=== PATIENT | female | born 1985 | race African-American/Black ===

== ENCOUNTER 2020-02-13 18:02 | Emergency (ER) | payer OTHER, SELFPAY ==
--- NOTE | 2020-02-13 18:08 | ED.ALLEREA ---
HPI - Allergic Reaction General Chief complaint: Allergic Reaction Stated complaint: Allergic Reaction Time Seen by Provider: 02/13/20 18:08 Source: patient and RN notes reviewed History of Present Illness HPI narrative: Patient is a 34-year-old female who presents the urgent care with complaints of a possible allergic reaction. Patient states that she woke up at 4 PM to get ready for work this evening and noticed hives to the bilateral breast, back, and panty line. Patient denies of any new lotions, detergents, creams. Denies of any known contact with pets. States that she has been a little stressed out but has never had hives from stress. Patient has not taken anything [id number] for her symptoms. Denies of any new foods. Denies of shortness of breath, wheezing or throat swelling. No other acute complaints. No acute distress noted. Patient aware of the plan of care. Some parts of this dictation were generated by voice recognition software and may contain typographical and/or grammatical inaccuracies. Related Data Allergies Allergy/AdvReac Type Severity Reaction Status Date / Time [place] Allergy Unknown Rash Uncoded 02/13/20 18:18 Review of Systems Review of Systems: Narrative: CONSTITUTIONAL: Denies fever, chills, or sweats. EYES: Denies visual changes, redness, or discharge. ENT: Denies rhinorrhea, congestion, sore throat, or otalgia. CARDIOVASCULAR: Denies chest pain, palpitations, or edema. RESPIRATORY: Denies cough or dyspnea. GASTROINTESTINAL: Denies abdominal pain, nausea, vomiting, or diarrhea. GENITOURINARY: Denies dysuria or hematuria. SKIN: Reports of hives to the left panty line and left breast MUSCULOSKELETAL: Denies back pain, joint pain, or myalgia. NEUROLOGIC: Denies headache, numbness, or weakness. All other systems reviewed are negative, except as documented in HPI. PMFSH Comments At the time of my signature, I reviewed and agree with the nursing past medical, surgical, social, and family history. There is no relevant family history pertinent to the patient complaint. Exam Narrative: Exam Narrative: GENERAL: This is a well-nourished, well-developed patient, in no apparent distress. HEAD: normocephalic, atraumatic. EYES: PERRL. Sclera clear/white. Vision is grossly intact. EARS: External ears normal NOSE: External nose normal with no obvious nasal discharge, nares without redness, no rhinorrhea. THROAT: Mucous membranes moist NECK: Neck supple SKIN: Raised urticaria with mild erythema to the bilateral breast, back, and panty line, nonpruritic NEURO: awake, alert, and oriented to person, place and time. There were no obvious focal neurologic abnormalities. EXTREMITIES: No clubbing, cyanosis, or edema. Course Vital Signs Vital signs: Vital Signs Temperature 98.7 F 02/13/20 18:14 Pulse Rate 90 02/13/20 18:14 Respiratory Rate 18 02/13/20 18:14 Blood Pressure 146/97 H 02/13/20 18:14 Pulse Oximetry 100 02/13/20 18:14 Temperature 98.7 F 02/13/20 18:14 Pulse Rate 90 02/13/20 18:14 Respiratory Rate 18 02/13/20 18:14 Blood Pressure 146/97 H 02/13/20 18:14 Pulse Oximetry 100 02/13/20 18:14 Reviewed-patient is informed that they may have pre-hypertension or hypertension based on a blood pressure reading in the department. I recommend the patient call the primary care provider listed on their discharge instructions or a physician of their choice this week to arrange follow-up for further evaluation of possible pre-hypertension or hypertension. MDM - Allergic Reaction MDM Narrative Medical decision making narrative: Advised the patient to use prescription cream to the affected areas. If you notice any increase in swelling or spread of the hives, start steroid and finish it as prescribed. Hives typically resolve on their own and can be stress-induced. If you notice full body hives?go to the emergency room. Follow-up with your PCP within 2 to 5 days or for worsening symptoms
[2020-02-13 18:14] VITALS: BP 146/97; PULSE 90; RESP 18; TEMP 37.1; O2SAT 100
== END 2020-02-13 18:25 | disposition home or self-care (01) ==
PROVIDERS: Emergency Provider Nurse Practitioner Family; PCP Family Medicine
DX: L50.9 Urticaria, unspecified (principal)
CPT/HCPCS: 99203; G0463

== ENCOUNTER 2020-12-23 14:24 | Emergency (ER) | payer OTHER, SELFPAY ==
[2020-12-23 14:37] VITALS: BP 132/76; PULSE 67; RESP 16; TEMP 36.9; O2SAT 100
--- NOTE | 2020-12-23 14:47 | ED.EAR ---
HPI - Ear Problem General Chief complaint: Ear Stated complaint: headache and r ear pain Time Seen by Provider: 12/23/20 14:47 Source: patient Mode of arrival: ambulatory History of Present Illness HPI Narrative: PATIENT PRESENTS WITH RIGHT EAR PAIN patient states she has a right-sided headache and nausea. Patient is fully vaccinated for COVID-19 and states she has had COVID-19 in the past. Patient denies any concerns for COVID-19 at today's visit and does not wish to be tested for COVID-19 at this time. Patient states she has a history of headaches and states that this is not the worst headache of her life. MD Complaint: ear pain Location: right ear Related Data Home Medications Medication Instructions Recorded Confirmed ferrous sulfate [FeroSul] 325 mg PO DAILY 12/23/20 12/23/20 levothyroxine 100 mcg PO DAILY 12/23/20 12/23/20 Allergies Allergy/AdvReac Type Severity Reaction Status Date / Time [place] Allergy Unknown Rash Uncoded 02/13/20 18:18 Review of Systems Review of Systems: CONSTITUTIONAL: Denies fever, chills, or sweats. EYES: Denies visual changes, redness, or discharge. ENT: Denies rhinorrhea, congestion, sore throat, or otalgia. CARDIOVASCULAR: Denies chest pain, palpitations, or edema. RESPIRATORY: Denies cough or dyspnea. GASTROINTESTINAL: Denies abdominal pain, nausea, vomiting, or diarrhea. GENITOURINARY: Denies dysuria or hematuria. SKIN: Denies rash or itching. MUSCULOSKELETAL: Denies back pain, joint pain, or myalgia. NEUROLOGIC: Denies headache, numbness, or weakness. PSYCHIATRIC: Denies anxiety or depression. Allergic/Immunologic: Comments: At time of signature, agree with nursing past medical, surgical, social and family history. There is no relevant family history pertinent to the presenting complaint Exam Narrative: GENERAL: Well-appearing, well-nourished, and in no acute distress. HEAD: Normocephalic, atraumatic. EYES: PERRLA and EOMI. ENT: Nares clear, no rhinorrhea or epistaxis. Mucous membranes moist. Moderate erythremia to right canal right TM dullness left TM intact good light reflex no erythema to left canal NECK: Supple. CHEST: Clear to auscultation. No respiratory distress. HEART: Regular rate and rhythm. No murmur heard. Normal peripheral pulses. ABDOMEN: Soft, nontender, nondistended, normal active bowel sounds. EXTREMITIES: Normal range of motion. No edema. SKIN: Warm, dry, no rash. NEURO: No focal deficits. Alert and oriented x3. SPEECH IS CLEAR. NO LANGUAGE DEFICITS. CRANIAL NERVES: PUPILS EQUAL, ROUND, AND REACTIVE TO LIGHT. VISUAL [place] FULL. EXTRA-OCULAR MOVEMENTS INTACT. NO NYSTAGMUS NOTED. FACIAL SENSATION INTACT TO LIGHT TOUCH. FACIAL MOVEMENT FULL AND SYMMETRIC. PALATE MIDLINE. TONGUE MIDLINE, MOVING EQUALLY IN BOTH DIRECTIONS. UVULA IS MIDLINE. SHOULDER SHRUG EQUAL ON BOTH SIDES. BILATERAL HAND GRASP 5/5. GAIT NORMAL. HEEL TO TOE AND TANDEM WALK NORMAL. FINGER TO NOSE NORMAL. NEG ROMBERG. [place] Coma Scale Eye Opening: Spontaneous 4 [place] Coma Scale Motor: Obeys Commands 6 [place] Coma Scale Verbal: Oriented 5 [place] Coma Scale Total 15 Course Vital Signs Vital signs: Vital Signs Temperature 36.9 C 12/23/20 14:37 Pulse Rate 67 12/23/20 14:37 Respiratory Rate 16 12/23/20 14:37 Blood Pressure 132/76 12/23/20 14:37 Pulse Oximetry 100 12/23/20 14:37 Temperature 36.9 C 12/23/20 14:37 Pulse Rate 67 12/23/20 14:37 Respiratory Rate 16 12/23/20 14:37 Blood Pressure 132/76 12/23/20 14:37 Pulse Oximetry 100 12/23/20 14:37 Addressed elevated BP today. Today's blood pressure higher than recommended range. Discussed importance of follow -up with PCP and possible filler leaf cutter long effects/cardiovascular events related to HTN. Currently patient denies headache, dizziness, vision changes, CP or shortness of breath. DISCUSSED THAT PRESENTATION IS SUSPICIOUS FOR COVID 19. PATIENT DENIES NEED FOR ANY COVID TESTING TODAY. PATIENT EDUCATED ON COVI
== END 2020-12-23 15:07 | disposition home or self-care (01) ==
PROVIDERS: Emergency Provider Nurse Practitioner Family; PCP Family Medicine
DX: H66.91 Otitis media, unspecified, right ear (principal); R11.2 Nausea with vomiting, unspecified; R51.9 Headache, unspecified; Z86.16 Personal history of COVID-19
CPT/HCPCS: 99213; G0463

== ENCOUNTER 2021-07-21 18:13 | Emergency (ER) | payer OTHER, SELFPAY ==
[2021-07-21 18:24] VITALS: BP 114/73; PULSE 75; RESP 18; TEMP 36.9; O2SAT 100
--- NOTE | 2021-07-21 18:24 | ED.EYEPROB ---
HPI - Eye Problem General Chief complaint: Eye Problems Stated complaint: Eye Swelling Time Seen by Provider: 07/21/21 18:50 Source: patient and RN notes reviewed Mode of arrival: ambulatory Limitations: no limitations History of Present Illness HPI Narrative: 35-year-old female presents concern for left upper eyelid swelling that started yesterday. Reports she does use ice. She denies any other veds-ady-rhyxexy intervention. She denies changes in vision. She reports tenderness when she touches the eyelid. She reports watery drainage. She denies purulent drainage. She denies history of similar problems. MD chief complaint: other Related Data Home Medications Medication Instructions Recorded Confirmed ferrous sulfate [FeroSul] 325 mg PO DAILY 12/23/20 07/21/21 levothyroxine 100 mcg PO DAILY 12/23/20 07/21/21 multivit with min-folic acid tablet PO 07/21/21 [Adult Multivitamin Gummies] mv-min-vit E-dxmryshq-zkey 124 1 ea PO 07/21/21 [Airborne Elderberry] Allergies Allergy/AdvReac Type Severity Reaction Status Date / Time [place] Allergy Unknown Rash Uncoded 07/21/21 18:29 Review of Systems Review of Systems: CONSTITUTIONAL: Denies malaise, chills, sweats, or fever. EYES: Denies visual changes. Denies redness, irritation, purulent discharge.. Reports left upper eyelid swelling and tenderness ENT: Denies rhinorrhea, congestion, sinus pain, otalgia or sore throat. SKIN: Denies rash or itching. NEUROLOGIC: Denies numbness, weakness, or headache. PSYCHIATRIC: Denies anxiety or depression. All systems reviewed & are unremarkable except as noted in HPI and below PMFSH Comments At time of signature, agree with nursing past medical, surgical, social and family history. There is no relevant family history pertinent to the presenting complaint Exam Narrative: GENERAL: Well-appearing, well-nourished, and in no acute distress. HEAD: Normocephalic, atraumatic. EYES: PERRLA, sclera clear, and EOMI. No nystagmus. Bilateral conjunctivae and sclera clear. lower eyelid unremarkable, no periorbital edema noted. Left upper eyelid edematous and slightly tender towards the inner canthus, hordeolum internum suspected ENT: Nares clear, turbinates pink, no rhinorrhea or epistaxis. Mucous membranes moist. TM pearly champagne with sharp light reflex bilaterally; no tragal tenderness. NECK: Supple. CHEST: No respiratory distress. Speaks in full sentences. HEART: Regular rate and rhythm. SKIN: Warm, dry, no visible rash. NEURO: Alert and oriented x3. PSYCH: Normal mood and affect Course Course Emergency Course: Patient is aware of diagnosis, understands and agrees to treatment plan. Anticipatory guidance given. Patient agrees to follow-up as directed and is aware of reasons to seek care at the emergency department. Portions of this record may have been created with voice recognition software Level of Care: Express Care Visit Vital Signs Vital signs: Reviewed. MDM - Eye Problem MDM Narrative Medical decision making narrative: Consideration of the following conditions may be warranted for the presenting problem, they are not final diagnoses: Bacterial conjunctivitis, allergic conjunctivitis, viral conjunctivitis, foreign body, blepharitis, chalazion, hordeolum, corneal abrasion, preseptal cellulitis, orbital cellulitis. No evidence of proptosis, ophthalmoplegia, vision loss, pain with eye movement. Exam findings show no acute concerns or changes; patient is non-toxic appearing and is in no distress. Patient is appropriate for outpatient treatment and follow-up. Critical Care Time Critical Care Time Critical Care Time: No Discharge Plan Discharge Clinical Impression: Hordeolum internum left upper eyelid Patient Disposition: Home, Self-Care Condition: Stable Instructions: Marcelina (ED) Additional Instructions: Do not touch or rub your eye. Use a warm washcloth on your eye for 15 minutes at a time throughout the day
== END 2021-07-21 19:10 | disposition home or self-care (01) ==
PROVIDERS: Emergency Provider Nurse Practitioner
DX: H00.024 Hordeolum internum left upper eyelid (principal); E03.9 Hypothyroidism, unspecified
CPT/HCPCS: 99213; G0463

== ENCOUNTER 2021-09-27 16:40 | Emergency (ER) | payer OTHER, SELFPAY ==
[2021-09-27 17:00] VITALS: BP 121/84; PULSE 91; RESP 20; TEMP 37.8; O2SAT 100
--- NOTE | 2021-09-27 17:36 | ED.URI ---
HPI - URI/Sore Throat General Chief Complaint: Upper Respiratory Infection Stated Complaint: Sore throat, stomach ache Time Seen by Provider: 09/27/21 17:15 Source: patient, RN notes reviewed and old records reviewed Mode of arrival: ambulatory Limitations: no limitations History of Present Illness HPI Narrative: 35 year old female who presents to [facility] care with complaints of sore throat and stomach ache since yesterday. Patient reports that she had weekly COVID testing at her place of employment today and was negative. She states that her throat is sore and she also has had body aches today with 2-3 loose stools today. Patient denies any nausea or vomiting. Patient reports that her work wanted her to be evaluated for her sore throat. Patient has had Covid vaccinations X2 and flu shot. MD elicited complaint: sore throat and other (stomach ache) Onset (ago): day(s) (1) Related Data Home Medications Medication Instructions Recorded Confirmed ferrous sulfate 325 mg (65 mg 325 mg PO DAILY 12/23/20 07/21/21 iron) tablet (FeroSul) levothyroxine 100 mcg tablet 100 mcg PO DAILY 12/23/20 07/21/21 multivitamin with minerals-folic tablet PO 07/21/21 acid 200 mcg chewable tablet (Adult Multivitamin Gummies) mv-min-vit C 1,000 mg-elderberry 1 ea PO 07/21/21 50 mg-herb 35.5mg effervescent tablet (Airborne Elderberry) Allergies Allergy/AdvReac Type Severity Reaction Status Date / Time [place] Allergy Unknown Rash Uncoded 07/21/21 18:29 Review of Systems Review of Systems: CONSTITUTIONAL:Positive for fever, chills, or sweats. EYES: Denies visual changes, redness, or discharge. ENT: Denies rhinorrhea, congestion,positive for sore throat, no otalgia. CARDIOVASCULAR: Denies chest pain, palpitations, or edema. RESPIRATORY: Denies cough or dyspnea. GASTROINTESTINAL: Denies acute abdominal pain,no nausea or vomiting, positive for diarrhea today GENITOURINARY: Denies dysuria or hematuria. SKIN: Denies rash or itching. MUSCULOSKELETAL: Denies back pain, joint pain, some body aches NEUROLOGIC: Denies headache, numbness, or weakness. PSYCHIATRIC: Denies anxiety or depression. All systems reviewed & are unremarkable except as noted in HPI and below PMFSH Past Medical History Medical History (Updated 09/29/21 @ 22:51 by Kaci Pond NP) Anemia Hypothyroidism Pyelonephritis UTI (urinary tract infection) Surgical History Surgical History (Updated 09/27/21 @ 17:40 by Kaci Pond NP) History of tonsillectomy and adenoidectomy Social History Social History (Updated 09/29/21 @ 22:45 by Kaci Pond NP) Smoking status: Never smoker Alcohol intake: never Substance use type: does not use Living arrangements: with family Gender identity (if verbalized by the patient): Female Comments At time of signature, agree with nursing past medical, surgical, social and family history. There is no relevant family history pertinent to the presenting complaint Exam Narrative: GENERAL: Well-appearing, well-nourished, and in no acute distress. HEAD: Normocephalic, atraumatic. EYES: PERRLA and EOMI. ENT: Nares clear, no rhinorrhea or epistaxis. Mucous membranes moist.TM's normal with good light reflex, throat red with no lesions or exudates tonsils absent. NECK: Supple.no lymphadenopathy CHEST: Clear to auscultation. No respiratory distress. HEART: Regular rate and rhythm. No murmur heard. Normal peripheral pulses. ABDOMEN: Soft, nontender to palpation, no McBurney point tenderness, nondistended, normal active bowel sounds,no CVA tenderness on examination. EXTREMITIES: Normal range of motion. No edema. SKIN: Warm, dry, no rash. NEURO: No focal deficits. Alert and oriented x3. Course Course Level of Care: Express Care Visit Vital Signs Vital signs: Vital Signs Temperature 37.8 C H 09/27/21 17:00 Pulse Rate 91 09/27/21 17:00 Respiratory Rate 20 09/27/21 17:00 Blood Pressure 121/84 09/27
== END 2021-09-27 18:20 | disposition home or self-care (01) ==
PROVIDERS: Emergency Provider Registered Nurse
DX: B34.9 Viral infection, unspecified (principal); J02.9 Acute pharyngitis, unspecified; E03.9 Hypothyroidism, unspecified; D64.9 Anemia, unspecified
CPT/HCPCS: 87081; 87804; 87880; 99213; G0463

== ENCOUNTER 2022-08-05 12:18 | Emergency (ER) | payer OTHER, SELFPAY ==
[2022-08-05 12:23] VITALS: BP 127/81; PULSE 80; RESP 20; TEMP 37.1; O2SAT 100
--- NOTE | 2022-08-05 12:42 | ED.URI ---
HPI - URI/Sore Throat General Chief Complaint: Upper Respiratory Infection Stated Complaint: Cough/Body Ache/Fever Source: patient and RN notes reviewed Limitations: no limitations History of Present Illness HPI Narrative: Patient is a 56-year-old female presents to the [facility] with a cough starting on Monday. Patient states that on Monday, she experienced a fever of 101? F. States that she has not had a fever since time. States that she has a frequent productive cough with clear sputum. She has also been experiencing body aches and chest congestion. She denies nasal congestion drainage. Denies chest pain or shortness of breath currently. Her respirations are nonlabored at this time. Related Data Home Medications Medication Instructions Recorded Confirmed ferrous sulfate 325 mg (65 mg 325 mg PO DAILY 12/23/20 08/05/22 iron) tablet (FeroSul) levothyroxine 100 mcg tablet 100 mcg PO DAILY 12/23/20 08/05/22 multivitamin with minerals-folic 1 tablet PO DAILY 07/21/21 08/05/22 acid 200 mcg chewable tablet (Adult Multivitamin Gummies) mv-min-vit C 1,000 mg-elderberry 1 ea PO DAILY 07/21/21 08/05/22 50 mg-herb 35.5mg effervescent tablet (Airborne Elderberry) Allergies Allergy/AdvReac Type Severity Reaction Status Date / Time [place] Allergy Unknown Rash Uncoded 08/05/22 12:36 Review of Systems Review of Systems: CONSTITUTIONAL: Reports fever on Monday but denies chills or sweats. EYES: Denies visual changes, redness, or discharge. ENT: Denies otalgia and sore throat CARDIOVASCULAR: Denies chest pain, palpitations, or edema. RESPIRATORY: Reports cough but denies dyspnea. GASTROINTESTINAL: Denies abdominal pain, nausea, vomiting, or diarrhea. GENITOURINARY: Denies dysuria or hematuria. SKIN: Denies rash or itching. MUSCULOSKELETAL: Denies back pain, joint pain, or myalgia. NEUROLOGIC: Denies headache, numbness, or weakness. Pertinent positives per HPI. [facility] Past Medical History Medical History Anemia Hypothyroidism Pyelonephritis UTI (urinary tract infection) Surgical History Surgical History History of tonsillectomy and adenoidectomy Social History Social History Smoking status: Never smoker Alcohol intake: never Substance use type: does not use Living arrangements: with family Gender identity (if verbalized by the patient): Female Comments At the time of my signature, I reviewed and agree with the nursing past medical, surgical, social, and family history. There is no relevant family history pertinent to the patient complaint. Exam Narrative: GENERAL: This is a well-nourished, well-developed patient, in no apparent distress. HEAD: normocephalic, atraumatic. EYES: Sclera clear/white. Vision is grossly intact. EARS: External ears normal, auditory canals clear and without drainage. Hearing grossly intact. NOSE: External nose normal with no obvious nasal discharge, nares without redness, no rhinorrhea. THROAT: Mucous membranes moist, posterior pharynx clear. NECK: Neck supple, non-tender without lymphadenopathy, masses or thyromegaly. CARDIOVASCULAR: Regular rate and rhythm without murmurs, gallops, or rubs. RESPIRATORY: Clear to auscultation. Breath sounds equal bilaterally. No wheezes, rales, or rhonchi. GASTROINTESTINAL: Abdomen soft, non-tender, nondistended. Bowel sounds are active. No hepato-splenomegaly, or palpable masses. No guarding. SKIN: warm, intact with no suspicious lesions or rash, good texture and turgor. NEURO: awake, alert, and oriented to person, place and time. There were no obvious focal neurologic abnormalities. Course Course Level of Care: Express Care Visit Vital Signs Vital signs: Vital Signs Temperature 98.8 F 08/05/22 12:23 Pulse Rate 80 08/05/22 12:23 Respi
== END 2022-08-05 12:47 | disposition home or self-care (01) ==
PROVIDERS: Emergency Provider Nurse Practitioner
DX: J40 Bronchitis, not specified as acute or chronic (principal); E03.9 Hypothyroidism, unspecified; D64.9 Anemia, unspecified
CPT/HCPCS: 99213; G0463

== ENCOUNTER 2022-11-24 17:00 | Emergency (ER) | payer OTHER, SELFPAY ==
[2022-11-24 17:10] VITALS: BP 119/72; PULSE 86; RESP 18; TEMP 36.6; O2SAT 100
--- NOTE | 2022-11-24 17:16 | ED.EYEPROB ---
HPI - Eye Problem General Stated complaint: Left Eye Problem Source: patient and RN notes reviewed History of Present Illness HPI Narrative: 36 yo F presents to urgent care with complaints of left eye irritation since yesterday. Pt reports a clear drainage from the eye. Denies any blurry vision, eye pain, fever, or chills. Pt does not wear contacts. Related Data Allergies Allergy/AdvReac Type Severity Reaction Status Date / Time [place] Allergy Unknown Rash Uncoded 11/24/22 17:23 Review of Systems Review of Systems: CONSTITUTIONAL: Denies fever, chills, or sweats. EYES: left eye drainage and irritation ENT: Denies otalgia and sore throat CARDIOVASCULAR: Denies chest pain, palpitations, or edema. RESPIRATORY: Denies cough or dyspnea. GASTROINTESTINAL: Denies abdominal pain, nausea, vomiting, or diarrhea. GENITOURINARY: Denies dysuria or hematuria. SKIN: Denies rash or itching. MUSCULOSKELETAL: Denies back pain, joint pain, or myalgia. NEUROLOGIC: Denies headache, numbness, or weakness. Pertinent positives per HPI. [facility] Past Medical History Medical History Anemia Hypothyroidism Pyelonephritis UTI (urinary tract infection) Surgical History Surgical History History of tonsillectomy and adenoidectomy Social History Social History Smoking status: Never smoker Alcohol intake: never Substance use type: does not use Living arrangements: with family Gender identity (if verbalized by the patient): Female Comments At the time of my signature, I reviewed and agree with the nursing past medical, surgical, social, and family history. There is no relevant family history pertinent to the patient complaint. Exam Narrative: GENERAL: This is a well-nourished, well-developed patient, in no apparent distress. HEAD: normocephalic, atraumatic. EYES: Sclera clear/white. Vision is grossly intact. left lower conjunctiva injected with dried drainage to lower lashes EARS: External ears normal, auditory canals clear and without drainage. Hearing grossly intact. NOSE: External nose normal with no obvious nasal discharge, nares without redness, no rhinorrhea. THROAT: Mucous membranes moist, posterior pharynx clear. NECK: Neck supple, non-tender without lymphadenopathy, masses or thyromegaly. CARDIOVASCULAR: Regular rate and rhythm without murmurs, gallops, or rubs. RESPIRATORY: Clear to auscultation. Breath sounds equal bilaterally. No wheezes, rales, or rhonchi. SKIN: warm, intact with no suspicious lesions or rash, good texture and turgor. NEURO: awake, alert, and oriented to person, place and time. There were no obvious focal neurologic abnormalities. Course Course Level of Care: Express Care Visit Vital Signs Vital signs: reviewed MDM - Eye Problem MDM Narrative Medical decision making narrative: Your exam today shows Conjunctivitis, You have been given a prescription for eye drops. Use the eye drops as instructed. If you are not better in two (2) days, you need to follow up with an email producer. Do not rub the eye or put anything else in the eye, this can cause abrasions (scratches) on the eye or lead to vision loss. Also it is important not to touch the tube or tip of drops to the eye, as this can cause further infection. Wash your hands very well before instilling the medication. Handwashing can help prevent the spread of disease. Follow up with PCP in 7-10 days Return to ER for problems Contact [facility] if you need an Foreign Exchange Position Clerk Differential Diagnosis Differential diagnosis: Likely corneal abrasion, conjunctivitis and periorbital cellulitis Critical Care Time Critical Care Time Critical Care Time: No Discharge Plan Discharge Clinical Impression: Conjunctivitis Qualifiers: Conjunctivitis type: uns
== END 2022-11-24 17:25 | disposition home or self-care (01) ==
PROVIDERS: Emergency Provider Nurse Practitioner Family
DX: H10.9 Unspecified conjunctivitis (principal); E03.9 Hypothyroidism, unspecified
CPT/HCPCS: 99213; G0463

== ENCOUNTER 2025-01-23 08:12 | Emergency (ER) | payer OTHER, SELFPAY ==
[2025-01-23 08:18] VITALS: BP 130/73; PULSE 68; RESP 20; TEMP 36.6; O2SAT 100
--- NOTE | 2025-01-23 08:37 | ED_ITS ---
HPI - URI/Sore Throat General Chief Complaint: Upper Respiratory Infection Stated Complaint: sore throat Time Seen by Provider: 01/23/25 08:38 Source: patient, RN notes reviewed and old records reviewed Mode of arrival: ambulatory Limitations: no limitations History of Present Illness HPI Narrative: 39 year old female with complaints of sore throat for 24 hours with no known fevers or any other symptoms noted. Patient reports that she has taken some Tylenol for her discomfort and has taken some honey also. Patient reports occasional cough denies any shortness of breath, SAO2 100% on room air. Patient reports some hoarseness today denies any known fevers, chills, or body aches. MD elicited complaint: sore throat Onset (ago): day(s) (1) Pain scale (0-10): 6 Description of mucous: clear Able to tolerate fluids by mouth: Yes Exacerbating factors: swallowing Treatments prior to arrival: acetaminophen and other (honey) Related Data Home Medications ?Medication ?Instructions ?Recorded ?Confirmed ?Last Taken ?Type ferrous sulfate 325 mg (65 mg mg 01/23/25 Unknown His tory iron) tablet (FeroSul) Allergies Allergy/AdvReac Type Severity Reaction Status Date / Time [place] Allergy Unknown Rash Uncoded 11/24/22 17:23 Review of Systems Review of Systems: CONSTITUTIONAL: Denies malaise, chills, sweats, or fever. EYES: Denies visual changes, redness, or discharge. ENT: Reports rhinorrhea, congestion,no sinus pain, no otalgia and + sore throat. CARDIOVASCULAR: Denies chest pain, palpitations, or edema. RESPIRATORY: Reports occasional dry cough.? Denies dyspnea. GASTROINTESTINAL: Denies abdominal pain, nausea, vomiting, diarrhea SKIN: Denies rash or itching. MUSCULOSKELETAL: Denies myalgia. NEUROLOGIC: Denies headache. All systems reviewed & are unremarkable except as noted in HPI and below PMFSH Past Medical History Medical History Hypothyroidism Anemia Pyelonephritis UTI (urinary tract infection) Surgical History Surgical History History of tonsillectomy and adenoidectomy Social History Social History Smoking status: Never smoker Alcohol intake: never Substance use type: does not use Living arrangements: with family Gender identity (if verbalized by the patient): Female Comments At time of signature, agree with nursing past medical, surgical, social and family history. There is no relevant family history pertinent to the presenting complaint Exam Narrative: GENERAL: Well-appearing, well-nourished, and in no acute distress. HEAD: Normocephalic EYES: PERRLA, conjunctivae clear ENT: Nares clear, turbinates edematous and erythematous, clear discharge. Mucous membranes moist. TM pearly champagne with dull light reflex bilaterally; no tragal tenderness. Oropharynx erythematous without lesions. Tonsils not present and throat without exudate, no drooling, + hoarseness, no trismus, uvula midline.some post nasal drainage noted NECK: Supple. No lymphadenopathy CHEST: Clear to auscultation, breath sounds equal. No wheezing, rhonchi, rales, or stridor. No respiratory distress, speaks in full sentences.occasional dry cough notedSAO2 100% on room air HEART: Regular rate and rhythm. No murmur heard. SKIN: Warm, dry, no rash. NEURO: Alert and oriented x3. PSYCH: Normal mood and affect Course Course Emergency Course: Patient is aware of diagnosis, understands and agrees to treatment plan.? Anticipatory guidance given.? Patient agrees to follow-up as directed and is aware of reasons to seek care at the emergency department. Portions of this record may have been created with voice recognition software Level of Care: Express Care Visit Vital Signs Vital signs: Vital Signs Temperature 36.6 C 01/23/25 08:18 Pulse Rate 68 01/23/25 08:18 Respiratory Rate 20 01/23/25 08:18 Blood Pressure 130/73 01/23/25 08:18 Pulse Oximetry 100 01/23/25 08:18 Oxygen Delivery Room Air 01/23/25 08:18 Temperature 36.6 C 01/23/25 08:18 Pulse Rate 68 01/23/25 08:18 Respiratory Rate 20 01/23/25 08:18 Blood Pressure 130/73 01/23/25 08:18 Pulse Oximetry 100 01/23/25 08:18 Oxygen Delivery Room Air 01/23/25 08:18 Reviewed MDM - URI/Sore Throat MDM Narrative Medical decision making narrative: Differential diagnosis considered: [place] virus, strep pharyngitis, allergic rhinitis, upper respiratory tract infection, sinusitis, rhinosinusitis, nasopharyngitis. viral pharyngitis, otitis media, otitis externa, pneumonia, bronchitis, viral cough syndrome, viral syndrome, and influenza.? Exam findings show no acute concerns or changes; patient is non-toxic appearing and is in no distress.? Patient is appropriate for outpatient treatment and follow-up. Differential Diagnosis Differential diagnosis: Likely upper respiratory infection, viral infection, pharyngitis and other (strep pharyngitis) Medical Records Attestation: I reviewed the patient's medical records. Lab Data Attestation: I reviewed the patient's lab results. Lab results narrative: strep screen negative, culture sent Labs: Lab Results 01/23/25 Range/Units 08:57 POC Grp A Strep Screen Negative (Negative) reviewed Critical Care Time Critical Care Time Critical Care Time: No Discharge Plan Discharge Clinical Impression: Upper respiratory infection Qualifiers: URI type: unspecified URI Qualified Code(s): J06.9 - Acute upper respiratory infection, unspecified Pharyngitis Qualifiers: Pharyngitis/tonsillitis etiology: unspecified etiology Qualified Code(s): J02.9 - Acute pharyngitis, unspecified Patient Disposition: Home Condition: Stable Instructions: Pharyngitis (ED), Upper Respiratory Infection (ED) Additional Instructions: Increase fluids especially juices and water Jrve-duk-tcboyof cough and cold medicine of your choice for your symptoms Zyrtec Claritin or Usha daily nasal spray as prescribed Flonase Tylenol or ibuprofen for any fever pain per package instructions Steroids as directed--take with food heat to the face 20-30 minutes 4-6 times a day for pain Salt water gargles, throat lozenges or throat sprays as desired Your strep test today was negative. A throat culture will be sent to the laboratory for further testing. IF the test is positive, you will receive a phone call within 48 hours and an appropriate antibiotic will be initiated at that time. If your symptoms persist, change or worsen significantly before you can contact your personal physician then please, without delay, go to the emergency department for further evaluation. Follow-up with PCP in 7-10 days or sooner if needed Follow up with PCP soon in regards to your blood pressure which is elevated a kavitha threshold for referral. Blood pressure above 120/80 may indicate pre- hypertension.130/73 Patient Language: Barb[place] Prescriptions: New fluticasone propionate [Flonase Allergy Relief] 50 mcg/actuation spray,suspension 1 spray intranasal DAILY Qty: 16 0RF Rx Instructions: administer into each nostril methylprednisolone [Medrol (Lexa)] 4 mg tablets,dose pack See Rx Instructions .ROUTE .COMPLEX Qty: 21 0RF Rx Instructions: orally per package directions No Action polymyxin B sulf-trimethoprim [Polytrim] 10,000 unit- 1 mg/mL drops 1 drp LEFT EYE Q3H 10 Days Qty: 10 0RF Rx Instructions: while awake; do not exceed 6 doses in 24 hours ferrous sulfate [FeroSul] 325 mg (65 mg iron) tablet Follow-up/Referrals: PHYSICIAN NOT ON STAFF,NONSTAFF [Primary Care Provider] Stand Alone Forms: Work/School Release IP Time of Disposition: 08:56 Quality [place] Coma Scale Eyes: Open Verbal: Oriented and Alert Motor: Follows Commands [place] Coma Total Score: 15
[2025-01-23 08:59] LABS: EDSTREPNEGPOS1 Negative (Negative)
== END 2025-01-23 09:00 | disposition home or self-care (01) ==
PROVIDERS: Emergency Provider Registered Nurse
DX: J06.9 Acute upper respiratory infection, unspecified (principal); J02.9 Acute pharyngitis, unspecified; E03.9 Hypothyroidism, unspecified; D64.9 Anemia, unspecified
CPT/HCPCS: 87081; 87880; 99213; G0463